=== PATIENT | male | born 1965 | race Caucasian/White ===

== ENCOUNTER 2019-06-02 10:44 | Outpatient (CLI) | payer OTHER, SELFPAY ==
--- NOTE | ~2019-06-02 | XR_ITS ---
EXAMINATION: XR lumbar spine 2-3V DATE: 06/02/2019 11:14 INDICATION: One week of recent worsening of chronic low back pain. TECHNIQUE: Anteroposterior and lateral views of the lumbar spine, and cone-down lateral view of the l umbosacral junction were obtained. COMPARISON: None. FINDINGS: Hypoplastic left 12th rib. There are 4 intervening nonrib-bearing lumbar segments, L1-L4. Alignment i s normal. Unchanged mild anterior wedging at T11 and T12 and minimal anterior wedging at L1. Multilev el mild disc height loss from T9-T10 through L3-L4 relatively sparing L1-L2. Sacrum and bilateral sac ral iliac joints are unremarkable. Phleboliths in the pelvis. At least mild right hip osteoarthritis with marginal osteophytes along the right acetabulum. Cholecystectomy clips in right upper quadrant. IMPRESSION: 1. Mild lumbar and lower thoracic spondylosis with no acute osseous abnormality. Reviewed, dictated and finalized at location A. 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 Mild lumbar and lower thoracic spondylosis with no acute osseous abnormality .
== END 2019-06-02 10:45 | disposition home or self-care (01) ==
LOC: CHSIMG 10:49
PROVIDERS: PCP Family Medicine; Visit Provider Family Medicine
DX: M54.5 Low back pain (principal)
CPT/HCPCS: 72100

== ENCOUNTER 2019-06-09 16:39 | Outpatient (RCR) | payer OTHER, SELFPAY ==
--- NOTE | 2019-06-09 17:42 | PTOPEVAL ---
Thank you for referring this patient to [facility]. Please review, sign, date and return this plan of care [facility]. I agree with and certify that the following plan of care is medically necessary. Referring Physician Date Admitting Provider: Attending Provider: Ryan Song MD Referring Provider: *PT Outpatient Evaluation Start: 06/09/19 16:58 Freq: Status: Active Protocol: Document 06/09/19 16:58 SHEILA (Rec: 06/09/19 17:31 SHEILA [id number]) Therapy Assessment Status Assessment Status Assessment Status Evaluation Evaluation Information Problem Diagnosis low back pain Onset 06/04/19 Subjective Information Pt. reports that he has had on Query Text:As Reported By Patient/ /off back pain for many years. Family Recently pain has gotten worse and is now shooting down the left leg and into the left ankle. 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 He describes pain on the outside of the left leg. He reports that he has trouble getting comfortable at night. He states that turning onto the right hand side causes most pain. He reports that getting up from a seated position is the most difficult. He reports difficulty with walking from the truck to the front of his house. He reports that his goal is to reduce his pain. Diagnostic Tests X-Rays For This Problem Yes Prior Level of Function Activity Level (Last 3 Months) Hand Dominance Right Activity of Daily Living Ability Independent Indoor/Home Mobility Independent Community Mobility Independent Stairs Ability Independent Functional Cognition (Planning, Shopping Independent , Taking Medications) Cooking Yes Cleaning Yes Laundry Yes Shopping Yes Driving Yes Pain Assessment Pain Scale Pain Scale Used Numeric (1 - 10) Self Report Pain Assessment Left Upper Lateral Thigh(s) Reported Pain Level 7 Pain Description Aching Pain Frequency
--- NOTE | 2019-06-12 13:40 | PCPTNOTE ---
patient called and cancelled his appt due to car problems [place]
--- NOTE | 2019-07-28 11:18 | PCPTNOTE ---
Pt. has failed to return to the clinic since last session on 06/19/19. He will be discharged from our care. Refer to last daily note for pt. discharge status. Toni Zamora, MPT
== END 2019-06-19 09:32 | disposition home or self-care (01) ==
LOC: CHSPT 16:39
PROVIDERS: PCP Family Medicine; Visit Provider Family Medicine
DX: M54.5 Low back pain (principal)
CPT/HCPCS: 97014; 97110; 97161; G0283

== ENCOUNTER 2020-10-31 21:02 | Emergency (ER) | payer SELFPAY ==
--- NOTE | ~2020-10-31 | CT_ITS ---
EXAMINATION: CT brain wo con EXAM DATE: 10/31/2020 21:12 INDICATION: Facial droop, temporary change in awareness. TECHNIQUE: Spiral CT of the head was performed without contrast. Axial, coronal and sagittal images were reviewed. The dose-length product (DLP) for this examination was 681.00 mGy-cm. The exposure w as tailored according to patient size, and iterative reconstruction (ASIR) was used as additional dos e reduction technique. There is no prior study for comparison. FINDINGS: Small to moderate-sized old right cerebellar infarction, small left cerebellar old infarcti on. There is no acute intraparenchymal hemorrhage. No evidence of intraparenchymal brain mass lesion . No evidence of acute infarction. Please note that initial head CT has limited sensitivity for sma ll or acute infarctions. There is mild periventricular and subcortical hypodensity, nonspecific but p robably related to small vessel ischemic disease. There is mild prominence of the sulci and ventric les related to cerebral atrophy. There is intracranial carotid arteriosclerosis. There are no extr a-axial collections. There is no mass effect or midline shift. Patient is looking to the right. Sof t tissue is unremarkable. The visualized sinuses and mastoid air cells are well aerated. IMPRESSION: 1. No acute intracranial findings. 2. 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 Reviewed, dictated and finalized at location G.
--- NOTE | ~2020-10-31 | XR_ITS ---
EXAMINATION: XR chest 1V portable INDICATION: Left upper limb weakness TECHNIQUE: Portable AP chest at 2152 hours COMPARISON: 01/12/2018 FINDINGS: Cardiomegaly is noted. A mild interstitial pattern is present. There is no pleural effusion or pneumothorax. IMPRESSION: 1. Cardiomegaly with likely mild pulmonary edema. Reviewed, dictated and finalized at location A.
[2020-10-31 21:02] VITALS: BP 185/127; PULSE 82; RESP 16; O2SAT 98
--- NOTE | 2020-10-31 21:06 | ECG_ITS ---
Measurements Intervals [place] Rate: 80 P: 51 WA: 177 QRS: -11 QRSD: 114 T: 32 QT: 411 QTc: 475 Interpretive Statements SINUS RHYTHM POSSIBLE LEFT ATRIAL ENLARGEMENT POSSIBLE LEFT VENTRICULAR HYPERTROPHY CONSIDER INFERIOR INFARCT, AGE INDETERMINATE BORDERLINE T WAVE ABNORMALITY- ANTEROLATERAL LEADS BASELINE ARTIFACT- I, II, III, AVR, AVL, AVF, V1-V6 ABNORMAL ECG Electronically Signed On 11-02-2020 10:37:31 CDT by Rodolfo Bernard D.O.
[2020-10-31 21:10] VITALS: BP 185/127; PULSE 84; RESP 20; TEMP 36.9; O2SAT 98
--- NOTE | 2020-10-31 21:38 | ED.NEUROSD ---
HPI - Neuro Symptoms/Deficit General Chief Complaint: Suspected CVA Stated Complaint: stat stroke Time Seen by Provider: 10/31/20 21:05 Source: patient, family, EMS and RN notes reviewed Mode of arrival: EMS Limitations: no limitations History of Present Illness Onset (ago): hour(s) (sxs started 1400 today. worse at 2030 ) Last Observed Normal: 20:30 Timing confirmed by: family member Location: speech, right face and left arm (left arm drift) History of same: No Severity: mild Quality: weak Relieving factors: none Exacerbating factors: none Context: gradual onset On Anticoagulants: No Associated symptoms: headaches, loss of appetite, nausea/vomiting, vertigo and weakness Treatments Prior to Arrival: none Related Data Home Medications Medication Instructions Recorded Confirmed amlodipine 10 mg PO DAILY 10/31/20 10/31/20 atorvastatin 10 mg PO DAILY 10/31/20 10/31/20 sacubitril-valsartan [Entresto] 1 tablet PO BID 10/31/20 10/31/20 spironolactone 25 mg PO DAILY 10/31/20 10/31/20 Allergies Allergy/AdvReac Type Severity Reaction Status Date / Time No Known Allergies Allergy Unverified 01/11/18 08:34 Review of Systems Review of Systems: All systems reviewed & are unremarkable except as noted in HPI and below Constitutional: Constitutional: Reports as per HPI and Reports no additional constitutional complaints Eyes: Eyes: Reports as per HPI and Reports no additional eye complaints ENT: Reports system reviewed and no additional complaints, except as documented and Reports as per HPI Cardiovascular: Cardiovascular: Reports as per HPI and Reports no additional cardiovascular complaints Respiratory: Respiratory: Reports as per HPI and Reports no additional respiratory complaints Gastrointestinal: Gastrointestinal: Reports as per HPI, Reports nausea, Reports vomiting and Reports other (loss of appetite.) Genitourinary: Genitourinary: Reports no additional male genitourinary complaints and Reports as per HPI Musculoskeletal: Musculoskeletal: Reports muscle weakness and Reports numbness (of right upper limb and right face) Integumentary/Breasts: Skin/Breast: Reports system reviewed and no additional complaints, except as docu and Reports as per HPI Neurologic: Reports as per HPI, Reports vertigo, Reports dizziness, Reports headache(s), Reports focal weakness, Reports numbness and Reports weakness Psychiatric: Psychiatric: Reports no additional psychiatric complaints and Reports as per HPI Endocrine: Endocrine: Reports no additional endocrine complaints and Reports as per HPI Hematologic/Lymphatic: Hematologic/Lymphatic: Reports no additional hematologic/lymphatic complaints and Reports as per HPI Allergic/Immunologic: Allergic/Immunologic: Reports no additional allergic/immunologic complaints and Reports as per HPI [facility] Past Medical History Medical History (Updated 10/31/20 @ 23:15 by Yariel Ruggiero MD) CHF (congestive heart failure), NYHA class II Exam Const: General: cooperative, no acute distress and alert Nutritional Appearance: obese Orientation/consciousness: oriented to person, oriented to place and oriented to time Limitations: no limitations HENMT: Head: normal to inspection, normocephalic and atraumatic Ears: hearing grossly normal bilaterally, external ears normal and TM's normal bilaterally General nose exam: Normal external nose present and Normal nares present Face and sinus: other (mild right facial droop with right eyelids weakness.) Mouth: Yes Normal oral and palatal mucosa present, Yes lip normal, Yes tongue normal, Yes oropharynx normal and Yes moist mucous membranes Teeth and gingiva: dentition normal and gingiva normal Throat: posterior oropharynx normal and tonsils normal Eyes: General: appearance normal, both eyes and all related structures Visual Miller: normal visual miller by confrontation Alignment and Position: alignment normal Periorbital: periorbital findings normal
[2020-10-31 21:44] LABS: Basophils Absolute Auto 0.01 K/mm3 (0.00-0.10); Basophils Percent Auto 0.1 % (0.0-1.0); Eosinophils Absolute Auto 0.01 K/mm3 (0.02-0.50); Eosinophils Percent Auto 0.1 % (1.0-6.0); Hemoglobin 19.2 g/dL (14.0-18.0); Immature Granulocyte Absolute 0.04 K/mm3 (0.00-0.00); Immature Granulocyte Percent A 0.4 % (0.0-0.0); Lymphocytes Absolute Auto 0.43 K/mm3 (1.10-4.50); Lymphocytes Percent Auto 4.7 % (18.0-42.0); Mean Corpuscular HGB Conc 36.2 g/dL (32.0-36.0); Mean Corpuscular Hemoglobin 33.6 pg (27.0-31.0); Mean Corpuscular Volume 92.8 fL (78.0-102.0); Mean Platelet Volume 10.4 fl (8.7-11.0); Monocytes Absolute Auto 0.29 K/mm3 (0.10-0.90); Monocytes Percent Auto 3.2 % (2.0-11.0); Neutrophils Absolute Auto 8.3 K/mm3 (1.7-7.2); Neutrophils Percent Auto 91.5 % (50.0-70.0); Platelet Count Result 240 K/mm3 (150-420); Red Blood Count 5.71 M/mm3 (4.70-6.10); Red Cell Distribution Width 12.7 % (11.6-14.4); White Blood Count 9.1 K/mm3 (4.8-10.8)
[2020-10-31 21:51] LABS: Partial Thromboplastin Time 25.9 SEC (23.90-30.70)
[2020-10-31 22:04] LABS: Alanine Aminotransferase 33 U/L (16-63); Albumin Level 4.6 g/dL (3.4-5.0); Alkaline Phosphatase 97 U/L (46-116); Anion Gap 17 mmol/L (8-16); Aspartate Amino Transferase 15 U/L (15-37); Bilirubin,Total 0.6 mg/dL (0.00-1.00); Blood Urea Nitrogen 14 mg/dL (7-18); Calcium 9.2 mg/dL (8.5-10.1); Carbon Dioxide 24 mmol/L (21-32); Chloride 99 mmol/L (98-108); Estimated CRCL calculation 105 ml/min; Estimated Glomerular Filt Rate > 60; Glucose 140 mg/dL (70-99); Osmolality Calculated 292 mOsm/kg (285-295); Potassium 3.1 mmol/L (3.5-5.1); Sodium 140 mmol/L (136-145); Total Protein 8.2 g/dL (6.4-8.2)
[2020-10-31 22:05] LABS: Creatine Kinase 94 U/L (39-308); Troponin I 16.9 ng/L (0.00-60.4)
[2020-10-31] MEDS: SODIUM CHLORIDE 0.9% IV 1,000 ML 999 ML IV CONT (22:06)
[2020-10-31] MEDS: ONDANSETRON INJ 4 MG/2 ML VIAL IV PUSH ×2 (22:06→23:04)
[2020-10-31] MEDS: hydrALAZINE HCL 20 MG/ML VIAL 5 MG IV PUSH (22:06)
[2020-10-31] MEDS: ASPIRIN 300 MG SUPPOSITORY RECTAL (22:08)
[2020-10-31 22:11] LABS: Lactic Acid Reflex 1.8 mmol/L (0.4-2.0)
[2020-10-31] MEDS: MORPHINE SULFATE (*CRX) 2 MG/ML INJ IV PUSH ×2 (22:27→23:05)
[2020-10-31 22:28] VITALS: BP 184/106
[2020-10-31] MEDS: hydrALAZINE HCL 20 MG/ML VIAL (22:30)
[2020-10-31 22:32] LABS: SARS-CoV-2 Ag Negative (Negative)
--- NOTE | 2020-10-31 22:40 | PC.NURSE ---
STAT stroke protocol initiated as soon as call received per EMS of pts. sxs. Pt taken directly to CT for scan upon arrival at 2104. See protocol paperwork in pt chart. 2134 Call placed to [facility] transfer line for stat stroke, awaiting call back from neuro to speak c ERP Dr. Ruggiero. 2157 Call back received from [facility], faustina c Dr. Ramos. Pt is accepted for transfer. Paperwork signed by pts. for transfer. Per neuro, pt will go to neuro floor. 2214 [facility] here, report given by Charo pt. loaded and ready for transfer. 2220 Awaiting call back and bed for pt at [facility]. [facility] cancelled on account of unknown time for bed placement. 2250 Awaiting call back, pt. resting and still c/o severe H/A, orders received. 2253 Call bed from [facility] bed assignment, Report called and EMS called for pt transfer.
[2020-10-31 23:12] VITALS: BP 185/106; PULSE 75; RESP 18; TEMP 36.6; O2SAT 97
[2020-11-02 13:49] LABS: Glucose Point of Care 133 mg/dl (65-105)
== END 2020-10-31 23:27 | disposition short-term general hospital (02) ==
PROVIDERS: Emergency Provider Emergency Medicine
DX: I63.9 Cerebral infarction, unspecified (principal); Z20.822 Contact with and (suspected) exposure to COVID-19
CPT/HCPCS: 36415; 70450; 71045; 80053; 82550; 82553; 82948; 83605; 84484; 85025; 85610; 85730; 87426; 93005; 96361; 96374; 96375; 96376; 99285; A9270; C9803; J0360; J2270; J2405; J7030

== ENCOUNTER 2024-04-08 03:40 | Emergency (ER) | payer SELFPAY ==
--- NOTE | ~2024-04-08 | XR_ITS ---
Portable chest x-ray Comparison: 10/31/2020 Clinical History: Shortness of breath Findings: Lungs are clear, without focal consolidation or pleural effusion. Cardiomediastinal silho uette is stable. Bones and soft tissues are unremarkable. Impression: Clear lungs. Stable cardiomegaly. Reviewed, dictated and finalized at location . [place] [employer] Impression: Clear lungs. Stable cardiomegaly.
--- NOTE | 2024-04-08 03:50 | ECG_ITS ---
Test Date: 2024-04-08 03:52:03 Measurements Intervals [place] Rate: 104 P: 29 WA: 169 QRS: -13 QRSD: 85 T: 64 QT: 345 QTc: 456 Interpretive Statements SINUS TACHYCARDIA POSSIBLE LEFT ATRIAL ENLARGEMENT [-0.1mV P-WAVE IN V1/V2] NONSPECIFIC T-WAVE ABNORMALITY ABNORMAL RHYTHM ECG No previous ECG available for comparison Electronically Signed On 04-10-2024 16:42:34 BROADCAST NEWS PRODUCER by Jossie Gaspar M.D.
[2024-04-08 09:06] LABS: Influenza A QL RT-PCR Negative (Negative); Influenza B QL RT-PCR Negative (Negative); RSV RNA, RT-PCR Negative (Negative); SARS-CoV-2 RNA PCR Negative (Negative)
[2024-04-08 09:07] LABS: Add Urine Microscopic? NO; Appearance Urine Clear (Clear); Bilirubin Urine Negative (Negative); Blood Urine Negative (Negative); Color Urine Light Yellow (Yellow); Glucose Urine UA Negative (Negative); Ketones Urine Negative (Negative); Leukocyte Esterase Ur Negative (Negative); Nitrate Urine Negative (Negative); Protein Urine Negative (Negative); Urobilinogen Urine 0.2 mg/dL (0.2-1.0); pH Urine 5.5 (5.0-8.0)
[2024-04-08 09:21] LABS: Base Excess ABG -3.2 mmol/L (0-2); HCO3 ABG 20.8 mmol/L (23-29); Oxygen Content ABG 18.9 %vol (16.0-22.0); Oxyhemoglobin 88.9 % (94-100); PCO2 ABG 34.7 mmHg (35-45)
[2024-04-08 09:23] LABS: Site Drawn RIGHT RADIAL
[2024-04-08 09:24] LABS: Device ROOM AIR; Modified Allen's Test Pass
[2024-04-08 09:55] LABS: Anion Gap 10 mmol/L (4-12); Bilirubin,Total 0.3 mg/dL (0.00-1.00); Blood Urea Nitrogen 20 mg/dL (7-18); Carbon Dioxide 25 mmol/L (21-32); Chloride 107 mmol/L (98-108); Estimated Glomerular Filt Rate > 60; Glucose 136 mg/dL (70-99); Osmolality Calculated 298 mOsm/kg (285-295); Potassium 3.6 mmol/L (3.5-5.1); Sodium 142 mmol/L (136-145)
[2024-04-08 09:56] LABS: Alanine Aminotransferase 42 U/L (16-63); Aspartate Amino Transferase 22 U/L (15-37); NT Pro B Type Natriuretic Pept 3465 pg/mL (0-125); Troponin I 78.8 ng/L (0.00-60.4)
[2024-04-08 09:57] LABS: Albumin Level 3.4 g/dL (3.4-5.0); Alkaline Phosphatase 98 U/L (46-116); Total Protein 6.6 g/dL (6.4-8.2)
[2024-04-08 10:24] LABS: Basophils Absolute Auto 0.04 K/mm3 (0.00-0.10); Basophils Percent Auto 0.5 % (0.0-1.0); Eosinophils Absolute Auto 0.12 K/mm3 (0.02-0.50); Eosinophils Percent Auto 1.5 % (1.0-6.0); Hematocrit 43.4 % (40.0-54.0); Hemoglobin 14.4 g/dL (14.0-18.0); Immature Granulocyte Absolute 0.02 K/mm3 (0.00-0.00); Immature Granulocyte Percent A 0.2 % (0.0-0.0); Lymphocytes Absolute Auto 1.58 K/mm3 (1.10-4.50); Lymphocytes Percent Auto 19.2 % (18.0-42.0); Mean Corpuscular HGB Conc 33.2 g/dL (32-36); Mean Corpuscular Hemoglobin 30.6 pg (27.0-31.0); Mean Corpuscular Volume 92.3 fL (78.0-102.0); Mean Platelet Volume 10.8 fl (8.7-11.0); Monocytes Percent Auto 8.5 % (2.0-11.0); Neutrophils Absolute Auto 5.77 K/mm3 (1.70-7.20); Neutrophils Percent Auto 70.1 % (50.0-70.0); Platelet Count Result 258 K/mm3 (150-420); Red Cell Distribution Width 14.3 % (11.6-14.4); White Blood Count 8.2 K/mm3 (4.8-10.8)
== END 2024-04-08 06:50 | disposition left against medical advice (07) ==
PROVIDERS: Emergency Provider Emergency Medicine; PCP Internal Medicine
DX: I21.4 Non-ST elevation (NSTEMI) myocardial infarction (principal); I11.0 Hypertensive heart disease with heart failure; I50.9 Heart failure, unspecified; T50.906A Underdosing of unspecified drugs, medicaments and biological substances, initial encounter; E78.5 Hyperlipidemia, unspecified; Z86.73 Personal history of transient ischemic attack (TIA), and cerebral infarction without residual deficits; Z91.148 Patient's other noncompliance with medication regimen for other reason; Z20.822 Contact with and (suspected) exposure to COVID-19
CPT/HCPCS: 36415; 36600; 71045; 80053; 81003; 82805; 83880; 84484; 85018; 85025; 87637; 93005; 96374; 99281; 99284; A9270; J1650; J1940

== ENCOUNTER 2024-11-03 21:03 | Emergency (ER) | payer SELFPAY ==
--- NOTE | ~2024-11-03 | CT_ITS ---
EXAMINATION: CT cervical spine wo con DATE: 11/03/2024 21:43 INDICATION: neck pain with some right arm radiculopathy/NO TRAUMA TECHNIQUE: Computed tomography (CT) of the cervical spine was performed without intravenous contrast. Automated exposure control and iterative reconstruction technique were employed. The dose-length pro duct was 753.13 mGy-cm. COMPARISON: None. FINDINGS: Vertebral Body Alignment: Intact. Craniocervical and atlantoaxial alignment: Moderate degenerative change. Alignment intact. Osseous structures/fracture: No evidence of a lytic or blastic process in the visualized spine. No e vidence of acute fracture. Left C3-4 facet fusion Cervical soft tissues: The paraspinal soft tissues planes are maintained. Degenerative changes: Multilevel degenerative disc disease and facet arthropathy. Severe left neural foraminal narrowing at C3-4. No severe central canal narrowing. IMPRESSION: No acute fracture or traumatic malalignment in the cervical spine. Reviewed, dictated and finalized at location K.
--- OUTSIDE RECORDS SUMMARY | 2024-11-03 21:06 | XMS_ITS | Data Portability ---
Author Organization [facility] Address [address] [place] [address] Assessment No assessment recorded. Plan of Treatment Reminders Order Date Submit Date Provider Last Modified By Organization Details Last Modified Time Details Appointments None recorde d. Lab PSA, serum or plasma 2014 015 [facility], [address] [place] [address], [address], [place], [address], 5 10:56:21 vitamin D, 1,25-di hydroxy , serum 2014 015 [facility], [address] [place] [address], [address], [place], [address], 5 10:56:21 Referral gastroe nterolo gist referra l 2014 015 [email or web address] Not available 5 11:22:43 colonos copy referra l 2014 015 [email or web address] Not available 5 10:57:58 Procedures None recorde d. Surgeries None recorde d. Imaging bone density study 2014 015 [email or web address] Not available 5 10:57:58 Medication Orders lisinop ril 20 mg-hydr ochloro thiazid e 25 mg tablet 2016 017 INTERFACE [facility], [address], [place], [address], 7 11:01:20 amlodip ine 10 mg tablet 2016 017 INTERFACE [facility], [address], [place], [address], 7 11:01:21 baclofe n 10 mg tablet 2015 016 DBA_PATCH_201 [id number] [id number], [address] [place], [address], 6 04:30:20 methoca rbamol 500 mg tablet 2015 016 DBA_PATCH_201 [id number] [id number], [address] [place], [address], 6 04:30:16 amlodip ine 10 mg tablet 2015 016 DBA_PATCH_201 [id number] [id number], [address] [place] [address], [address], 6 04:30:22 lisinop ril 20 mg-hydr ochloro thiazid e 25 mg tablet 2015 016 DBA_PATCH_201 [id number] [id number], [address] [place], [address], 6 04:30:25 methoca rbamol 500 mg tablet 2015 016 INTERFACE [id number], [address] [place], [address], 6 11:29:09 lisinop ril 20 mg-hydr ochloro thiazid e 25 mg tablet 2015 016 INTERFACE [id number], [address] [place], [address], 6 11:29:08 amlodip ine 10 mg tablet 2015 016 INTERFACE [id number], [address] [place], [address], 6 11:29:18 Robaxin 500 mg tablet 2014 015 [facility], [address] [place] [address], [address], 5 17:50:11 amlodip ine 10 mg tablet 2014 015 [facility], [address] [place] [address], [address], 5 17:50:10 lisinop ril 20 mg-hydr ochloro thiazid e 25 mg tablet 2014 015 [facility], [address] [place] [address], [address], 5 17:50:11 baclofe n 10 mg tablet 2014 015 [facility], [address] [place] [address], [address], 5 10:56:21 baclofe n 10 mg tablet 2014 015 [facility], [address] [place] [address], [address], 5 13:44:01 lisinop ril 20 mg-hydr ochloro thiazid e 25 mg tablet 2014 015 [facility], [address] [place] [address], [address], 5 10:56:21 amlodip ine 10 mg tablet 2014 015 [facility], [address] [place] [address], [address], 5 10:56:21 amlodip ine 10 mg tablet 2014 015 [facility], [address] [place], [address], 5 13:44:01 lisinop ril 20 mg-hydr ochloro thiazid e 25 mg tablet 2014 015 [facility], [address] [place], [address], 5 13:44:01 Patient TargetsNo targets recorded. Patient Instructions Encounter Date Encounter Id Patient Instructions Last Modified By Organization Details Last Modified Time 08/27/2014 [id number] deciding about using medicines to quit [facility] available 08/27/2014 10:56:21 Quitting Tobacco : Care Inst[facility] Not available 08/27/2014 10:56:21 chronic obstructive pulmonary disease (COPD): care instructions [facility] Not available 08/27/2014 10:56:21 learning about copd and how to prevent lung infections [facility] Not available 08/27/2014 10:56:21 learning about high blood pressure [facility] Not available 08/27/2014 10:56:21 03/04/2015 [id number] deciding about using medicines to quit smoking [facility] Not available 03/04/2015 18:29:07 Quitting Tobacco : Care Instructions [facility] Not available 03/04/2015 18:29:07 learning about high blood pressure [facility] Not available 03/04/2015 18:29:07 chronic obstructive pulmonary disease (COPD): care instructions [facility] Not available 03/04/2015 18:29:07 learning about copd and how to prevent lung infections [facility] Not available 03/04/2015 18:29:07 09/02/2015 [id number] deciding about using medicines to quit smoking [facility] Not available 09/02/2015 14:17:08 Quitting Tobacco : Care Instructions [facility] Not available 09/02/2015 14:17:08 learning about high blood pressure [facility] Not available 09/02/2015 14:17:08 chronic obstructive pulmonary disease (COPD): care instructions [facility] Not available 09/02/2015 14:17:08 learning about copd and how to prevent lung infections [facility] Not available 09/02/2015 14:17:08 02/21/2016 [id number] deciding about using medicines to quit smoking [facility] Not available 02/21/2016 17:22:17 Quitting Tobacco : Care Instructions [facility] Not available 02/21/2016 17:22:17 learning about high blood pressure [facility] Not available 02/21/2016 17:22:17 chronic obstructive pulmonary disease (COPD): care instructions [facility] Not available 02/21/2016 17:22:17 learning about copd and how to prevent lung infections [facility] Not available 02/21/2016 17:22:17 08/08/2016 [id number] deciding about using medicines to quit smoking [facility] Not available 08/08/2016 11:07:37 Quitting Tobacco : Care Instructions str[facility] Not available 08/08/2016 11:07:37 chronic obstructive pulmonary disease (COPD): care instructions [facility] Not available 08/08/2016 11:07:37 learning about copd and how to prevent lung infections [facility] Not available 08/08/2016 11:07:37 Reason for Referral Referring Physician: Naseem jurado, Internal Medicine, Encounter Date: 08/27/2014 Colonoscopy Referral for Scr eening for malignant neoplasm of colon Referring Physician: Naseem Herrera, Internal Medicine, Encounter Date: 08/27/2014 Problems Name Problem SNOMED Code Status Onset Date Resolution Date Notes Provider Name and Address Organization Details Recorded Time Chronic osteoarthritis 90844711 Active Naseem Herrera MD Attn: Shahzad peacock,[address] [place], [address], [facility] 6 11:28:56 Chronic obstructive pulmonary disease 17790964 Julisa Herrera MD Attn: Shahzad peacock,[address] [place], [address], [facility] 6 17:09:15 Tobacco dependence syndrome 86305039 Julisa Herrera MD Attn: Shahzad peacock,[address] [place], [address], [facility] 6 11:28:56 Essential hypertension 47490674 Julisa Herrera MD Attn: Shahzad peacock,[address] [place], [address], [facility] 6 11:28:56 Problem Notes None recorded. Medical Equipment None Reported. Allergies No known drug allergies Medications Name Sig Start Date Stop Date Status Note LastModified by Organization Details LastModified Time amlodipine tab 10mgamlodipine besylate active Not Available Not Available Not Available lisinop/hctz tab 20-12.5lisinop ril/hydrochlor othiazide active Not Available Not Available No t Available methocarbamol 500 mg tablet Take 2 tablets 3 times a day by oral route for 30 days. 2015 active Not Available Not Available Not Avai lable lisinopril 20 mg-hydrochloro thiazide 12.5 mg tablet TAKE ONE TABLET BY MOUTH TWICE DAILY 2014 active Not Available Not Available Not Avai lable baclofen 10 mg tablet Take 1 tablet twice a day by oral route for 30 days. 2015 active Not Available Not Available Not Avai lable amlodipine 10 mg tablet TAKE ONE TABLET BY MOUTH ONCE DAILY 2016 active Not Available Not Available Not Avai lable lisinopril 20 mg-hydrochloro thiazide 25 mg tablet Take 1 tablet every day by oral route as directed for 30 days. 2016 active Not Available Not Available Not Avai lable Vitals Date Recorded Body height Body weight Body mass index (BMI) Body temperature Oxygen saturation Oxygen saturation in Arterial blood by Pulse oximetry Heart rate Systolic And Diastolic Provider Name and Address Organization Details Last Updated DateTime 7 174.625 cm 80831.0 6 g 30.9 kg/m2 98.2 [degF] 98 % 98 % 83 /min 118/74 mm[Hg] Jefferson Rueda MA [facility] 7 10:18:11 Date Recorded Oxygen saturation Oxygen saturation in Arterial blood by Pulse oximetry Body weight Body temperature Body height Body mass index (BMI) Heart rate Systolic And Diastolic Provider Name and Address Organization Details Last Updated DateTime 5 100 % 100 % 53832.7 6718 g 98.8 [degF] 174.625 cm 31.8 kg/m2 80 /min 140/90 mm[Hg] Jefferson Rueda MA [facility] 5 10:06:06 Date Recorded Body mass index (BMI) Body weight Oxygen saturation Oxygen saturation in Arterial blood by Pulse oximetry Body height Heart rate Body temperature Systolic And Diastolic Provider Name and Address Organization Details Last Updated DateTime 6 33.6 kg/m2 838582. 250217 g 97 % 97 % 174.625 cm 86 /min 98.8 [degF] 126/76 mm[Hg] Jefferson Rueda MA [facility] 6 11:02:44 Date Recorded Body height Body weight Body mass index (BMI) Body temperature Oxygen saturation Oxygen saturation in Arterial blood by Pulse oximetry Heart rate Systolic And Diastolic Provider Name and Address Organization Details Last Updated DateTime 6 174.625 cm 88022.3 8 g 32.1 kg/m2 98.1 [degF] 96 % 96 % 75 /min 122/80 mm[Hg] Jefferson Rueda MA [facility] 6 16:52:13 Date Recorded Body weight Oxygen saturation Oxygen saturation in Arterial blood by Pulse oximetry Body height Body temperature Heart rate Body mass index (BMI) Systolic And Diastolic Provider Name and Address Organization Details Last Updated DateTime 5 12618.8 82574 g 99 % 99 % 174.625 cm 98.9 [degF] 79 /min 31.3 kg/m2 144/80 mm[Hg] Jefferson Rueda MA [facility] 5 16:48:31 Social History Question Answer Notes LastModified by Organizat ion Details LastModified Time Tobacco Smoking Status Current Every Day Smoker cigarettes -- half a pack a day Jefferson Rueda MA [facility], [facility] 08/27/2014 10:06:06 How Many Years Have You Smoked Tobacco? 10 [email or web address] Information not available 08/27/2014 Sex: Unknown Functional Status None recorded. Mental Status None recorded. Family History Nothing Reported. Medical History No medical history recorded. Past Encounters Encounter ID Performer Location Encounter Start Date Encounter Closed Date Diagnosis/Indication Diagnosis SNOMED-CT Code Diagnosis ICD10 Code Diagnosis Note [id number] [facility] [address] [place] [address] 08/27/2014 09:53:25 08/27/2014 10:57:58 Chronic osteoarthritis 34747432 Chronic ob structive pulmonary disease 38318401 Tobacco de pendence syndrome 19586336 Essential hypertension 01749815 Screening for malignant neoplasm of colon 060612077 Adult heal th examination [id number] Naseem Herrera MD [facility] (Adult Med) [address] [place] [address] 03/04/2015 16:06:30 03/04/2015 17:51:23 Essential hypertension 85014997 I10 Chronic osteoarthritis 10059181 M19.90 Chronic ob structive pulmonary disease 58851184 J44.9 Tobacco de pendence syndrome 36221354 F17.290 [id number] MD [facility] (Adult Med) [address] [place] [address] 09/02/2015 10:47:01 09/02/2015 11:28:20 Chronic osteoarthritis 62478375 M19.90 Essential hypertension 88897809 I10 Chronic ob structive pulmonary disease 53818961 J44.9 Tobacco de pendence syndrome 18091315 F17.437 [id number] Naseem Herrera MD [facility] (Adult Med) [address] [place] [address] 02/21/2016 16:13:39 02/21/2016 17:20:15 Chronic obstructive pulmonary disease 36384051 J44.9 Chronic osteoarthritis 63881462 M19.90 Essential hypertension 05207911 I10 Tobacco de pendence syndrome 19039136 F17.352 [id number] Naseem Herrera MD [facility] (Adult Med) [address] [place] [id number] 08/08/2016 10:04:32 08/08/2016 11:02:40 Chronic obstructive pulmonary disease 90061104 J44.9 Chronic osteoarthritis 28320147 M19.90 Tobacco de pendence syndrome 77911702 F17.290 Essential hypertension 26443538 I10 Health Concerns Section Related Observation LastModified by Organization Detai ls LastModified Time None Recorded Concern Status LastModified by Organization Details LastModified Time None Recorded Advance Directives Directive None Recorded Payers Insurance Date Sequence Insurance Name Policy Number Policy Schulz Covered Member ID Schulz Member ID Guarantor Name 03/04/2015 1 [employer] (MEDICAID HMO) Matthew Fabian [id number] Matthew Fabian 08/29/2016 1 [place] [facility] [facility] Matthew Fabian [id number] Matthew Fabian 08/29/2016 [employer] (MEDICAID HMO) Matthew Fabian [id number] Matthew Fabian 08/14/2016 1 [employer] (MEDICAID HMO) Matthew Fabian [id number] Matthew Fabian 08/29/2016 1 *SELF PAY* Wellington Fabian Notes Date Note Type Note Provider Name and Address Organization Details Recorded Time 03/04/2015 text/html 1. Refills of medications for his BP. 2. pain over the mulyiple joints elbows( left being the worst than others ). knees, hands, lowerback for at least 6 months. Naseem Herrera MD Attn: [address] [place], [address], [facility] 03/04/2015 17:50:49 09/02/2015 text/html All medications including BP and arthritis are working well. Naseem Herrera MD Attn: [address] [place], [address], [place] 09/02/2015 11:29:00
--- OUTSIDE RECORDS SUMMARY | 2024-11-03 21:06 | XMS_ITS | Clinical Summary ---
Author Organization [facility] [address] Address [address] [place] [address] Care Team Providers Care Lumber Stacker Operator Name Role Phone Ryan Song MD Primary Care Provide r Allergies No known active allergies Medications spironolactone (ALDACTONE) 25 mg tabletIndications:Ch ronic systolic congestive heart failure (HCC) Take 1 tablet by mouth once daily 90 tablet 2 0 Active amLODIPine (NORVASC) 10 mg tablet Take 10 mg by mouth daily Active atorvastatin (LIPITOR) 80 mg tabletIndications:Ce rebral Thromboembolism Prevention,hyperlipi demia Take 1 tablet (80 mg total) by mouth daily 30 tablet 11 1 Active carvediloL (COREG) 12.5 mg tablet Take 1 tablet (12.5 mg total) by mouth 2 (two) times a day with meals 60 tablet 11 1 Active lisinopriL (PRINIVIL,ZESTRIL) 40 mg tablet Take 1 tablet (40 mg total) by mouth daily 30 tablet 11 1 Active Active Problems Problem Noted Date Diagnosed Date Excessive drinking of alcohol 11/04/2020 CHF (congestive heart failure) 11/04/2020 Polycythemia 11/04/2020 Tobacco use 11/04/2020 Snoring 11/04/2020 Dyslipidemia 05/16/2018 Nonischemic cardiomyopathy 05/16/2018 Chronic systolic congestive heart failure 2018 Essential hypertension 05/16/2018 Social History Tobacco Use Types Packs/Day Years Used Date Smoking Tobacco: Former Cigarettes Q uit: 05/04/2020 Smokeless Tobacco: Never Tobacco Cessation:Counseling Given: Yes Alcohol Use Standard Drinks/Week Comments Not Currently 0 (1 standard drink = 0.6 oz pur e alcohol) PHQ-2 Answer Date Recorded PHQ-2 Total Score (If total score is 3 or more points, staff should administer the PHQ-9) 0 11/08/2020 Personal Safety Answer Date Recorded Getting School Help Needed Not on file 06/24 Sex and Gender Information Value Date Recorded Sex Assigned at Not on file 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 Gender Identity Not on file Sexual Orientation Not on file Obstetrics History Last Filed Vital Signs Vital Sign Reading Time Taken Comments Blood Pressure 113/76 12/14/2020 12:43 PM CDT Pulse 85 12/14/2020 12:43 PM CDT Temperature 36.8 C (98.3 F) 12/14/2020 12:43 PM CDT Respiratory Rate 18 12/14/2020 12:4 3 PM CDT Oxygen Saturation 99% 11/08/2020 4:53 PM CDT Inhaled Oxygen Concentration - - Weight 102.4 kg (225 lb 11.2 oz) 2020 12:43 PM CDT Height 182.9 cm (6') 12/14/2020 12:43 PM CDT Body Mass Index 30.61 12/14/2020 12:43 PM CDT Plan of Treatment Not on file Insurance IDPA [facility] IDPA Advance Directives For more information, please contact: [phone] * Full Code (Latest Code Status on File) Date Activated Date Inactivated Comments 11/01/2020 1:30 AM 11/08/2020 11:34 PM Care Teams Lumber Stacker Operator Relationship Specialty Start Date End Date Ryan Song MD [address] [place] [address] PCP - General Family Medicine 02/08/18
--- OUTSIDE RECORDS SUMMARY | 2024-11-03 21:06 | XMS_ITS | Referral Summary ---
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
--- NOTE | 2024-11-03 21:10 | ECG_ITS ---
Test Date: 2024-11-03 21:14:18 Measurements Intervals Lamar Rate: 82 P: 2 MI: 149 QRS: -19 QRSD: 110 T: 53 QT: 394 QTc: 463 Interpretive Statements SINUS RHYTHM NONSPECIFIC T-WAVE ABNORMALITY ABNORMAL ECG Compared to ECG 04/08/2024 03:52:03 NO SIGNIFICANT CHANGE Electronically Signed On 11-05-2024 07:57:23 CDT by Toni Long M.D.
[2024-11-03 21:14] VITALS: BP 178/112; PULSE 87; TEMP 35.8; O2SAT 96
[2024-11-03] MEDS: MORPHINE SULFATE (*CRX) 4 MG/ML INJ IM (21:27)
--- OUTSIDE RECORDS SUMMARY | 2024-11-03 21:33 | XMS_ITS | Referral Summary ---
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
--- OUTSIDE RECORDS SUMMARY | 2024-11-03 21:33 | XMS_ITS | Clinical Summary ---
Author Organization 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
--- NOTE | 2024-11-03 21:55 | ED_ITS ---
HPI - Extremity Problem General Chief complaint: Extremity Problem,Nontraumatic Stated complaint: pinched nerve Rt side of neck Time Seen by Provider: 11/03/24 21:15 Source: patient and family Mode of arrival: ambulatory Limitations: no limitations History of Present Illness HPI Narrative: this is a 58-year-old male who presents with some neck pain with radiation to his right arm for the last 4 days rates his pain about a 7/10 with some numbness and tingling has been doing some heavy lifting and subsequent to that has had this some radiculopathy going down his right arm. No other injuries no chest pain no shortness of breath no fever chills. Complaint: extremity pain Onset (ago): day(s) Pain Consistency: constant Location: right Severity scale (1-10): 7 Related Data Home Medications ?Medication ?Instructions ?Recorded ?Confirmed ?Last Taken ?Type amlodipine 10 mg tablet 10 mg PO DAILY 10/31/20 10/31/20 Unknown History atorvastatin 10 mg tablet 10 mg PO DAILY 10/31/20 10/31/20 Unknown History sacubitril 49 mg-valsartan 51 mg 1 tablet PO BID 10/31/20 10/31/20 Unknown History tablet (Entresto) spironolactone 25 mg tablet 25 mg PO DAILY 10/31/20 10/31/20 Unknown History Allergies Allergy/AdvReac Type Severity Reaction Status Date / Time No Known Allergies Allergy Unverified 01/11/18 08:34 Review of Systems Review of Systems: All systems reviewed & are unremarkable except as noted in HPI and below PMFSH Past Medical History Medical History CHF (congestive heart failure), NYHA class II Exam Const: General: healthy appearing and no acute distress Nutritional Appearance: well nourished and obese Orientation/consciousness: patient oriented x3 Limitations: no limitations Neck: Neck: normal visual inspection, no lymphadenopathy and no meningeal signs Chest: Chest palpation & inspection: normal inspection of the chest Resp: Effort & Inspection: normal respiratory effort Auscultation: clear to auscultation bilaterally Cardio: Rate: regular rate Rhythm: regular rhythm GI: GI Palp: Yes Soft to palpation Auscultation: normal bowel sounds : General: Yes bladder normal to palpation Neuro: General: patient oriented x3, moves all extremities, no meningeal signs and no focal motor deficits Extrem: Other: Neck pain with some palpation and palpation the right arm Course Course Emergency Course: EKG performed shows normal sinus rhythm, patient received 4g of IM morphine and after reassessment pain level has improved patient had a CT scan of the cervical spine which shows no acute abnormality. Vital Signs Vital signs: Vital Signs Temperature 35.8 C L 11/03/24 21:14 Pulse Rate 87 11/03/24 21:14 Blood Pressure 178/112 H 11/03/24 21:14 Pulse Oximetry 96 11/03/24 21:14 Oxygen Delivery Room Air 11/03/24 21:14 Temperature 35.8 C L 11/03/24 21:14 Pulse Rate 87 11/03/24 21:14 Blood Pressure 178/112 H 11/03/24 21:14 Pulse Oximetry 96 11/03/24 21:14 Oxygen Delivery Room Air 11/03/24 21:14 Critical Care Time Critical Care Time Critical Care Time: No Discharge Plan Discharge Clinical Impression: Cervical radiculopathy Patient Disposition: Home Condition: Stable Instructions: Antibiotic Form, Cervical Radiculopathy (ED) Additional Instructions: advised patient to take medication as prescribed and to follow with primary within the next 3 to 5 days further evaluation treatment. Patient Language: Setswana Prescriptions: New oxycodone-acetaminophen [Percocet] 5-325 mg tablet 1 tablet PO Q6H PRN (Reason: pain) Qty: 20 0RF No Action atorvastatin 10 mg tablet 10 mg PO DAILY spironolactone 25 mg tablet 25 mg PO DAILY amlodipine 10 mg tablet 10 mg PO DAILY Entresto 49-51 mg tablet 1 tablet PO BID Rx Instructions: hasnt taken in a while because its too expensive Follow-up/Referrals: Ryan Song MD [Primary Care Provider] - Time of Disposition: 22:01
[2024-11-03 22:10] VITALS: BP 158/97; PULSE 89; RESP 18; TEMP 36.8; O2SAT 97
== END 2024-11-03 22:10 | disposition home or self-care (01) ==
PROVIDERS: Emergency Provider Emergency Medicine; PCP Family Medicine
DX: M54.12 Radiculopathy, cervical region (principal); I50.9 Heart failure, unspecified
CPT/HCPCS: 72125; 93005; 96372; 99284; J2270